=== PATIENT | female | born 1960 | race Caucasian/White ===

== ENCOUNTER 2019-08-15 15:56 | Inpatient (IN) | payer MEDICAID, OTHER, SELFPAY ==
[~2019-08-15] VITALS: Ht 172.7 cm; Wt 70.1 kg
--- NOTE | 2019-08-15 15:56 | NUR ---
PT BIB EMS FROM [facility]. PER EMS REPORT, PT WAS TAKEN TO ED THERE EARLIER TODAY FOR SEIZURE ACTIVITY AND HAD A SEIZURE IN CT SCAN. PER EMS, CT SCAN SHOWED A NEW ACUTE SAH. PT ARRIVED FROM EMS WITH PIV FROM SENDING FACILITY AND RECEIVED 1000MG IVPB KEPPRA, 2MG IVP ATIVAN, AND 1 L NS. PT ASSISTED FROM EMS GURPOPLAR BRANCH TO ED GURPOPLAR BRANCH. PT PLACED ON FULL MONITOR, CALL LIGHT WITHIN REACH, SECOND PIV ESTABLISHED. PT HAS HX BRAIN TUMOR AND STATES RADIOABLATION TO HAVE IT REMOVED.
[2019-08-15] MEDS ORDERED: hydrALAzine 20 MG/ML, 1ML IV ONE (16:00)
[2019-08-15] MEDS ORDERED: hydrALAzine 20 MG/ML, 1ML ONE (16:00)
--- NOTE | 2019-08-15 16:00 | NUR ---
PT'S BP 164/90, NOTIFIED AND NEW ORDERS RECIEVED.
--- NOTE | 2019-08-15 16:02 | NUR ---
PT MEDICATED WITH 10MG IVP HYDRALAZINE TO KEEP SBP BELOW 160.
--- NOTE | 2019-08-15 16:11 | NUR ---
MD RESIDENT AT BEDSIDE FOR EXAM.
--- NOTE | 2019-08-15 16:20 | NUR ---
danitza resident with dr bates spoke with dr ibarra
--- NOTE | 2019-08-15 16:21 | NUR ---
LAB AT BEDSIDE.
--- NOTE | 2019-08-15 16:23 | NUR ---
NOTIFIED THAT PT'S BP 146/86, NEW ORDERS RECEIVED AND IMPLEMENTED.
[2019-08-15] MEDS ORDERED: LABETALOL 5MG/ML, 20ML ONE (16:24)
--- NOTE | 2019-08-15 16:29 | NUR ---
PT MEDICATED WITH 10MG IVP LABETALOL TO KEEP SBP UNDER 140.
[2019-08-15] MEDS ORDERED: LABETALOL 5MG/ML, 20ML IVPush ONE ×2 (16:30→19:00)
[2019-08-15] MEDS ORDERED: DIVA250T4 PO (16:36)
[2019-08-15] MEDS ORDERED: ARIP2TAB2 PO (16:36)
[2019-08-15] MEDS ORDERED: ALPR0.5T6 PO (16:36)
[2019-08-15] MEDS ORDERED: CARV12.52 PO (16:36)
--- NOTE | 2019-08-15 16:37 | NUR ---
MED REC COMPLETED.
--- NOTE | 2019-08-15 16:40 | NUR ---
DISCUSSED WITH MD AND RESIDENT ABOUT CTA WITH CONTRAST ORDER, OK PER MD FOR PT TO GET CONTRAST.
[2019-08-15 16:41] LABS: ANION GAP 9 mmol/L (5-15); CALCIUM 8.8 mg/dL (8.5-10.1); CHLORIDE 108 mmol/L (98-107); CREATININE 0.63 mg/dL (0.55-1.02)
--- NOTE | 2019-08-15 16:43 | NUR ---
MERCHANDISING EXECUTION ASSOCIATE NOTIFED THAT CT SCAN HAS BEEN ORDERED WITH CONTRAST AND THIS RN VERIFIED WITH MD AND RESIDENT.
--- NOTE | 2019-08-15 16:44 | NUR ---
TASK RN PHONED PT'S SONS. LUCY (SON): [phone] (YOUNGEST SON), LUCIO (SON, LIVES WITH PT, SPECIAL NEEDS). UPDATED GIVEN TO PT'S FAMILY.
--- NOTE | 2019-08-15 17:43 | NUR ---
TASK RN TO BEDSIDE, PT PLACED ON CLEAN LINENS, TAKEN TO CT.
--- NOTE | 2019-08-15 18:09 | NUR ---
REPORT GIVEN TO NAGI CORONA. PTTO TRANSFER TO INPATIENT STATUS WHEN BACK FROM CT.
--- NOTE | 2019-08-15 18:40 | NUR ---
Pt back from CT, resting in bed, NADN. c/o mild HARRISON "In my temples" 10/21, requesting aspirin. Pt to be held in ED until neurologist can see the CTA read.
[2019-08-15] MEDS ORDERED: OMNIPAQUE 350 MG/ML, 100ML BOTTLE ONE (19:14)
--- NOTE | 2019-08-15 19:48 | NUR ---
TELE DOC ON ROBOT IN ROOM, [facility] AND MD RESIDENT ALSO AT BEDSIDE FOR INTERVIEW.
--- NOTE | 2019-08-15 19:56 | NUR ---
REPORT GIVEN TO NAGI CHAVEZ. PT TO TRANSFER TO INPATIENT STATUS.
--- NOTE | 2019-08-15 19:57 | NUR ---
PER DR. MARTINEZ, NEUROLOGY WANTS A REPEAT HEAD, THEN PT CLEARED TO GO UPSTAIRS.
[2019-08-15] MEDS ORDERED: morphine SULFATE 10 MG/ML, 1ML IVPush PRN (20:00)
[2019-08-15] MEDS ORDERED: POLYETHYLENE GLYCOL 17 GM PACKET PO PRN (20:00)
[2019-08-15] MEDS ORDERED: LABETALOL 5MG/ML, 20ML IV PRN (20:00)
[2019-08-15] MEDS ORDERED: BISACODYL 10 MG SUPP PR PRN (20:00)
[2019-08-15] MEDS ORDERED: ONDANSETRON 2MG/ML, 2ML IVPush PRN (20:00)
[2019-08-15] MEDS ORDERED: DOCUSATE 100 MG CAPSULE PO PRN (20:00)
[2019-08-15] MEDS ORDERED: OXYcodone IR 5MG TABLET PO PRN (20:00)
[2019-08-15] MEDS ORDERED: INSTRUCTION SEE COMMENTS XX ONE (20:00)
[2019-08-15] MEDS ORDERED: VALPROATE SODIUM 1,000 MG in DEXTROSE 5% 100 ML IV ONE (20:30)
--- NOTE | 2019-08-15 20:32 | NUR ---
THIS RN TOOK PT TO CT FOR FOLLOW UP HEAD CT, PT THEN TAKEN TO 544 AND ASSISTED TO ICU BED. BEDSIDE RN AT BEDSIDE.
[2019-08-15 22:07] VITALS: BP 131/79
[2019-08-16 05:01] LABS: BASOPHILS # (AUTO) 0.13 x10^3/uL (0-0.1); BASOPHILS % (AUTO) 1 % (0-1); EOSINOPHILS # (AUTO) 0.15 x10^3/uL (0-0.4); EOSINOPHILS % (AUTO) 1 % (1-7); LYMPHOCYTES % (AUTO) 27 % (22-44); MD NO; MEAN CORPUSCULAR HEMOGLOBIN 31.5 pg (27.0-34.8); MEAN CORPUSCULAR HGB CONC 33.9 g/dL (32.4-35.8); MEAN CORPUSCULAR VOLUME 92.9 fL (80-100); MEAN PLATELET VOLUME 7.3 fL (7.4-10.4); MONOCYTES # (AUTO) 0.87 x10^3/uL (0.2-0.8); MONOCYTES % (AUTO) 6 % (2-9); NEUTROPHILS # (AUTO) 9.54 x10^3/uL (1.8-6.8); NEUTROPHILS % (AUTO) 65 % (42-75); PLATELET COUNT 227 x10^3/uL (130-400); RED BLOOD COUNT 5.06 x10^6/uL (3.82-5.3); RED CELL DISTRIBUTION WIDTH 14.8 % (9.6-15.2)
[2019-08-16 05:03] LABS: ALBUMIN 2.8 g/dL (3.4-5.0); ANION GAP 8 mmol/L (5-15); CALCIUM 8.6 mg/dL (8.5-10.1); CHLORIDE 105 mmol/L (98-107)
[2019-08-16 05:09] LABS: ALANINE AMINOTRANSFERASE 42 U/L (12-78); ALKALINE PHOSPHATASE 84 U/L (45-117); BILIRUBIN,TOTAL 0.9 mg/dL (0.2-1.0); CHOL/HDL RATIO 1.8; CHOLESTEROL, TOTAL 175 mg/dL (140-239); CREATININE 0.58 mg/dL (0.55-1.02); HDL CHOL % 57 % (28-40); HDL CHOLESTEROL (DIRECT) 100 mg/dL (40-60); LDL CHOLESTEROL,CALCULATED 62 mg/dL (54-169); LDL/HDL RATIO 0.6 (0.5-3.0); TOTAL PROTEIN 6.2 g/dL (6.4-8.2); TRIGLYCERIDES 65 mg/dL (50-200); VLDL CHOLESTEROL 13 mg/dL (0-25)
[2019-08-16] MEDS: VALPROATE SODIUM 250 MG in DEXTROSE 5% 100 ML IV SCH ×3 (09:06→20:28)
[2019-08-16] MEDS ORDERED: GADOTERATE 7.5 MMOL/15 ML SYR ONE ×2 (11:54→18:03)
[2019-08-16 12:21] LABS: AMPHETAMINE SCREEN, URINE Negative (Negative); BARBITURATE SCREEN, URINE Negative (Negative); BENZODIAZEPINE SCREEN, URINE Negative (Negative); CANNABINOID SCREEN, URINE Negative (Negative); COCAINE SCREEN, URINE Negative (Negative); METHADONE SCREEN, URINE Negative (Negative); OPIATE SCREEN, URINE Negative (Negative)
[2019-08-16 15:32] VITALS: BP 127/78
[2019-08-16] MEDS ORDERED: MAGNESIUM SULFATE PMX 2GM/50ML 50 ML IV ONE (16:30)
[2019-08-16] MEDS: POTASSIUM CHLORIDE 20 MEQ TAB.ER.PRT PO SCH (16:43)
[2019-08-16 19:28] VITALS: BP 132/79
[2019-08-17] VITALS (7 sets, daily range): BP systolic 129–152; BP diastolic 75–97
[2019-08-17] MEDS: ACETAMINOPHEN 325 MG TABLET PO PRN (03:37)
[2019-08-17 03:42] LABS: MICROSCOPIC AUTO
[2019-08-17 03:44] LABS: CULTURE INDICATED? YES
[2019-08-17 05:23] LABS: BASOPHILS # (AUTO) 0.02 x10^3/uL (0-0.1); BASOPHILS % (AUTO) 0 % (0-1); EOSINOPHILS # (AUTO) 0.19 x10^3/uL (0-0.4); EOSINOPHILS % (AUTO) 2 % (1-7); LYMPHOCYTES # (AUTO) 2.87 x10^3/uL (1-3.4); LYMPHOCYTES % (AUTO) 28 % (22-44); MD NO; MEAN CORPUSCULAR HEMOGLOBIN 31.1 pg (27.0-34.8); MEAN CORPUSCULAR HGB CONC 32.8 g/dL (32.4-35.8); MEAN CORPUSCULAR VOLUME 94.8 fL (80-100); MEAN PLATELET VOLUME 7.4 fL (7.4-10.4); MONOCYTES # (AUTO) 0.75 x10^3/uL (0.2-0.8); MONOCYTES % (AUTO) 7 % (2-9); NEUTROPHILS % (AUTO) 63 % (42-75); PLATELET COUNT 209 x10^3/uL (130-400); RED CELL DISTRIBUTION WIDTH 14.4 % (9.6-15.2)
[2019-08-17 05:27] LABS: ANION GAP 7 mmol/L (5-15); CALCIUM 8.3 mg/dL (8.5-10.1); CHLORIDE 107 mmol/L (98-107)
[2019-08-17 05:29] LABS: CREATININE 0.59 mg/dL (0.55-1.02)
[2019-08-17] MEDS: POTASSIUM CHLORIDE 20 MEQ TAB.ER.PRT PO SCH (09:21)
[2019-08-17] MEDS: MAGNESIUM OXIDE 400 MG TABLET PO SCH (09:21)
[2019-08-17] MEDS: VALPROATE SODIUM 250 MG in DEXTROSE 5% 100 ML IV SCH ×3 (09:21→21:03)
[2019-08-18] VITALS: BP 153/90
[2019-08-18 00:16] VITALS: BP 157/94
[2019-08-18 05:03] VITALS: BP 138/89
[2019-08-18 05:47] LABS: BASOPHILS # (AUTO) 0.03 x10^3/uL (0-0.1); BASOPHILS % (AUTO) 0 % (0-1); EOSINOPHILS # (AUTO) 0.29 x10^3/uL (0-0.4); EOSINOPHILS % (AUTO) 3 % (1-7); LYMPHOCYTES # (AUTO) 3.25 x10^3/uL (1-3.4); LYMPHOCYTES % (AUTO) 33 % (22-44); MD NO; MEAN CORPUSCULAR HEMOGLOBIN 30.7 pg (27.0-34.8); MEAN CORPUSCULAR HGB CONC 33.2 g/dL (32.4-35.8); MEAN CORPUSCULAR VOLUME 92.2 fL (80-100); MEAN PLATELET VOLUME 7.7 fL (7.4-10.4); MONOCYTES # (AUTO) 0.69 x10^3/uL (0.2-0.8); MONOCYTES % (AUTO) 7 % (2-9); NEUTROPHILS % (AUTO) 57 % (42-75); PLATELET COUNT 207 x10^3/uL (130-400); RED BLOOD COUNT 5.27 x10^6/uL (3.82-5.3); RED CELL DISTRIBUTION WIDTH 14.4 % (9.6-15.2)
[2019-08-18 05:49] LABS: ANION GAP 8 mmol/L (5-15); CALCIUM 8.6 mg/dL (8.5-10.1); CHLORIDE 105 mmol/L (98-107); CREATININE 0.56 mg/dL (0.55-1.02)
[2019-08-18 06:48] VITALS: BP 133/82
[2019-08-18] MEDS: MAGNESIUM OXIDE 400 MG TABLET PO SCH (12:01)
[2019-08-18 12:15] VITALS: BP 150/85
[2019-08-18] MEDS: VALPROATE SODIUM 250 MG in DEXTROSE 5% 100 ML IV SCH ×2 (12:36→16:24)
[2019-08-18] MEDS: ACETAMINOPHEN 325 MG TABLET PO PRN (15:18)
[2019-08-18] MEDS ORDERED: DIVA250T4 PO (15:36)
[2019-08-18] MEDS ORDERED: CARV12.52 PO (15:36)
[2019-08-18] MEDS ORDERED: MAGN400T50 PO (15:36)
== END 2019-08-18 17:40 | disposition home or self-care (01) | DRG 64 ==
LOC: ED 16:52 → EDIP 17:37 → CCU 18:21 → 4EST 08-16 14:41 → DCLOUNGE 08-18 17:11
PROVIDERS: ADMIT Emergency Medicine; ATTEND Internal Medicine
DX: I60.8 Other nontraumatic subarachnoid hemorrhage (principal); G93.41 Metabolic encephalopathy; D68.9 Coagulation defect, unspecified; R47.01 Aphasia; E16.2 Hypoglycemia, unspecified; E83.42 Hypomagnesemia; E87.6 Hypokalemia; E88.09 Other disorders of plasma-protein metabolism, not elsewhere classified; G40.909 Epilepsy, unspecified, not intractable, without status epilepticus; I10 Essential (primary) hypertension; Z79.899 Other long term (current) drug therapy; Z86.011 Personal history of benign neoplasm of the brain; Z92.3 Personal history of irradiation
CPT/HCPCS: 36415; 70450; 70496; 70553; 71045; 80048; 80053; 80061; 80164; 80307; 81001; 82140; 82607; 83036; 83735; 84443; 85025; 87081; 87086; 87147; 93880; 95816; 96374; 96375; 99291; G0378; Q9967; 92523-GN; A9575; J0360; J3475